=== PATIENT | female | born 2000 | race Caucasian/White ===

== ENCOUNTER 2021-10-24 08:32 | Emergency (ER) | payer MEDICAID ==
[~2021-10-24] VITALS: Ht 172.7 cm; Wt 113.6 kg
[~2021-10-24 08:32] MED LIST: ALBUTEROL0.5 % IN; AMOXIL400 MG/5 M OR; BACTROBAN21 EX; HYDROXYZ H10 MG/5 ML OR; LOTRIMIN AF11 EX; NO MEDS; SINGULAIR4 MG OR
[2021-10-24 08:44] VITALS: BP 130/74
[2021-10-24 09:36] LABS: HEMOGLOBIN 13.7 g/dl (12.0-16.0); IMMATURE GRANULOCYTES 0.1 % (0.0-5.0); MEAN CELL VOLUME 87.3 fL CALC (80.0-100.0); MEAN CORPUSCULAR HGB 28.5 pG CALC (26.0-32.0); MEAN CORPUSCULAR HGB CONC 32.6 g/dL CAL (32.0-36.0); NEUT# 4.64 thou/uL (2.00-7.15); RED BLOOD COUNT 4.81 mill/uL (4.20-5.60); RED CELL DISTRI WIDTH 12.9 % (11.5-15.5)
[2021-10-24 09:56] LABS: ALBUMIN 4.6 g/dL (3.2-5.0); ANION GAP 15 (6-22 (CALC)); BUN 11 mg/dL (7-17); BUN/CREATININE RATIO 17 (12-20 (CALC)); CARBON DIOXIDE 22 mmol/l (22-30); CHLORIDE 106 mmol/l (95-108); CREATININE 0.7 mg/dL (0.5-1.0); GFR FOR AFR.AMER. > 60 ML/MIN (>=60 (CALC)); GFR OTHER RACES > 60 ML/MIN (>=60 (CALC)); POTASSIUM 4.7 mmol/l (3.5-5.1); SGOT/AST 38 u/l (14-36); SODIUM 139 mmol/l (137-146); TOTAL PROTEIN 8.7 g/dL (6.3-8.2)
[2021-10-24 09:58] LABS: ALKALINE PHOSPHATASE 64 u/l (38-126); BILIRUBIN, TOTAL 0.9 mg/dL (0.0-1.4)
[2021-10-24 10:23] VITALS: BP 130/74
== END 2021-10-24 10:31 | disposition home or self-care (01) ==
LOC: ED 08:32
PROVIDERS: Family Medicine
DX: R25.1 Tremor, unspecified (principal); R41.3 Other amnesia; Z20.822 Contact with and (suspected) exposure to COVID-19